=== PATIENT | female | born 1935 | race Caucasian/White ===

== ENCOUNTER → 2017-07-03 12:15 | Outpatient (CLI) | payer MEDICARE ==
[~2017-07-03] VITALS: Ht 167.6 cm; Wt 76.2 kg
[2017-07-03 13:23] VITALS: Ht 167.6 cm; Wt 76.2 kg
== END | disposition home or self-care (01) ==
LOC: D.FANS 06-12 10:30
DX: E11.9 Type 2 diabetes mellitus without complications (principal)